=== PATIENT | female | born 1955 | race Caucasian/White ===

== ENCOUNTER 2017-06-27 20:59 | Emergency (ER) | payer BC, OTHER ==
[~2017-06-27] VITALS: Ht 162.6 cm; Wt 68.0 kg
[2017-06-27 20:59] VITALS: BP 168/88
--- NOTE | 2017-06-27 22:25 | NUR ---
Michael can in ED - 06/27/[address] HOLLOWAY IS AT THE BEDSIDE SPEAKING TO THE PT AND HER DAUGHTER.
--- NOTE | 2017-06-27 22:53 | NUR ---
PT PRESENTED TO THE ER WITH A C/O FLU LIKE SYMPTOMS. PT HAS FEVER, CONGESTION, CHEST PAIN WITH COUGH, SORE THROAT, LEFT EAR PAIN, AND DENTAL PAIN. PT TOOK [employer]IST[employer] AT 1999. PT'S TEMP AT HOME WAS 103F ORALLY. PT IS NOW 101.6F ORALLY. PT IS AWAITING EVAL BY .
--- NOTE | 2017-06-27 23:00 | NUR ---
PT IS C/O FEELING WORSE. PT REC'D A BOX OF TISSUE AND TYLENOL PO.
[2017-06-27] MEDS ORDERED: ACETAMINOPHEN ES 500 MG TABLET ONE (23:17)
--- NOTE | 2017-06-27 23:25 | NUR ---
DR HOLLOWAY IS AT THE BEDSIDE SPEAKING TO THE PT.
[2017-06-27] MEDS ORDERED: ACETAMINOPHEN ES 500 MG TABLET PO ONE (23:30)
[2017-06-27] MEDS ORDERED: AZITHROMYCIN 250 MG TABLET ONE (23:41)
--- NOTE | 2017-06-27 23:50 | NUR ---
Patient discharged to home in stable condition. Written and verbal after care instructions given. Patient verbalizes understanding of instruction AND RX. PT'S DAUGHTER IS DRIVING PT HOME. VSS. PT AMBULATED OUT WITH A STEADY GAIT.
[2017-06-28] MEDS ORDERED: AZITHROMYCIN 250 MG TABLET PO ONE
== END 2017-06-27 23:50 | disposition home or self-care (01) ==
LOC: ER 21:00
DX: J32.9 Chronic sinusitis, unspecified (principal); I10 Essential (primary) hypertension; K21.9 Gastro-esophageal reflux disease without esophagitis; G43.909 Migraine, unspecified, not intractable, without status migrainosus; F41.9 Anxiety disorder, unspecified; Z88.1 Allergy status to other antibiotic agents; Z88.8 Allergy status to other drugs, medicaments and biological substances; Z88.0 Allergy status to penicillin; Z60.2 Problems related to living alone
CPT/HCPCS: 99283; A4606; Z7610

== ENCOUNTER 2017-07-02 16:38 | Emergency (ER) | payer OTHER ==
[~2017-07-02] VITALS: Ht 162.6 cm; Wt 67.1 kg
[2017-07-02 16:40] VITALS: BP 152/99
[2017-07-02] MEDS ORDERED: predniSONE 20 MG TABLET ONE (18:29)
[2017-07-02] MEDS ORDERED: ALBUTEROL FS 2.5 MG/0.5 ML VIAL.NEB NEB ONE (18:30)
[2017-07-02] MEDS ORDERED: predniSONE 20 MG TABLET PO ONE (18:30)
[2017-07-02] MEDS ORDERED: ALBUTEROL FS 2.5 MG/0.5 ML VIAL.NEB ONE (18:35)
== END 2017-07-02 19:07 | disposition home or self-care (01) ==
LOC: ER 16:39
DX: J40 Bronchitis, not specified as acute or chronic (principal); R06.2 Wheezing; F41.9 Anxiety disorder, unspecified; I10 Essential (primary) hypertension; K21.9 Gastro-esophageal reflux disease without esophagitis; G43.909 Migraine, unspecified, not intractable, without status migrainosus; Z88.1 Allergy status to other antibiotic agents; Z88.8 Allergy status to other drugs, medicaments and biological substances
CPT/HCPCS: 71045-TC; A4606; Z7610

== ENCOUNTER 2018-03-18 12:00 | Emergency (ER) | payer OTHER ==
[~2018-03-18] VITALS: Ht 162.6 cm; Wt 65.3 kg
[2018-03-18 12:18] VITALS: BP 146/97
--- NOTE | 2018-03-18 12:48 | NUR ---
Patient discharged to home in stable condition. Written and verbal after care instructions given. Patient verbalizes understanding of instruction.
== END 2018-03-18 12:48 | disposition home or self-care (01) ==
LOC: ER 12:02
DX: L98.8 Other specified disorders of the skin and subcutaneous tissue (principal); G43.909 Migraine, unspecified, not intractable, without status migrainosus; K21.9 Gastro-esophageal reflux disease without esophagitis; F41.9 Anxiety disorder, unspecified; B02.9 Zoster without complications; Z88.1 Allergy status to other antibiotic agents; Z60.2 Problems related to living alone; Z98.890 Other specified postprocedural states; Z88.6 Allergy status to analgesic agent
CPT/HCPCS: 99283; A4606; Z7610